=== PATIENT | male | born 1950 | race Caucasian/White ===

== ENCOUNTER 2019-04-22 10:07 | Day surgery (SDC) | payer OTHER ==
[~2019-04-22] VITALS: Ht 185.4 cm; Wt 123.8 kg
[~2019-04-22 10:07] MED LIST: ASPI81TA85 PO; CLAR10CA3 PO; MAGN200T PO; MOTR200T44 PO; MULTCAP PO; NS 1,000 ML IV ONE; OMEP20CA4 PO; ROSU5TAB5 PO; SAW1CAPS2 PO; VITA500T PO
[2019-04-22] MEDS ORDERED: PROPOFOL 200 MG/20 ML VIAL As Ordered ONE ×2 (10:37→11:34)
[2019-04-22] MEDS ORDERED: LIDOCAINE 2% INJ 100 MG/5 ML SDV (FOR ANES.) As Ordered ONE (10:37)
--- NOTE | 2019-04-22 11:13 | ROOR ---
Patient Name: Singh Dorsey Procedure Date: 04/22/2019 10:54 AM Date of : 1950 Age: 69 Room: [facility] Gender: Male Note Status: Finalized Procedure: Upper Endoscopy + Biopsies Indications: Heartburn, Exclusion of Ruiz's esophagus Providers: Christ Briceño MD Referring MD: Consuelo Snell Np Requesting Provider: Medicines: Monitored Anesthesia Care Complications: No immediate complications. Procedure: Pre-Anesthesia Assessment: - The heart rate, respiratory rate, oxygen saturations, blood pressure, adequacy of pulmonary ventilation, and response to care were monitored throughout the procedure. The Endoscope was introduced through the mouth, and advanced to the second part of duodenum. The upper GI endoscopy was accomplished without difficulty. The patient tolerated the procedure well. Findings: The Z-line was irregular and was found 40 cm from the incisors. Multiple biopsies were obtained with cold forceps for evaluation to rule out Ruiz's Esophagus randomly at the gastroesophageal junction. Mucosal changes including ringed esophagus were found in the entire esophagus. Biopsies were taken with a cold forceps for histology. Localized mildly erythematous mucosa without bleeding was found in the gastric antrum. Biopsies were taken with a cold forceps for Helicobacter pylori testing. The exam of the duodenum was otherwise normal. Impression: - Z-line irregular, 40 cm from the incisors. - Esophageal mucosal changes suggestive of eosinophilic esophagitis. Biopsied. - Erythematous mucosa in the antrum. Biopsied. - Multiple biopsies were obtained at the gastroesophageal junction. - The examination was otherwise normal. Recommendation: - Patient has a contact number available for emergencies. The signs and symptoms of potential delayed complications were discussed with the patient. Return to normal activities tomorrow. Written discharge instructions were provided to the patient. - High fiber diet. - Discharge patient to home. - Follow an antireflux regimen. - Continue present medications. - Await pathology results. - Telephone GI clinic for pathology results in 1 week. - Return to referring physician. - The findings and recommendations were discussed with the patient's family. Christ Briceño MD Christ Briceño MD 04/22/2019 11:12:29 AM Electronically signed by Christ Briceño MD Number of Addenda: 0 Note Initiated On: 04/22/2019 10:54 AM Estimated Blood Loss: Estimated blood loss: none.
--- NOTE | 2019-04-22 11:39 | ROOR ---
Patient Name: Singh Dorsey Procedure Date: 04/22/2019 10:55 AM Date of : 1950 Age: 69 Room: [facility] Gender: Male Note Status: Finalized Procedure: Total Colonoscopy to Cecum + Biopsy Polypectomy Indications: Colon cancer screening in patient at increased risk: Colorectal cancer in father Providers: Christ Briceño MD Referring MD: Consuelo Snell Np Requesting Provider: Medicines: Monitored Anesthesia Care Complications: No immediate complications. Procedure: Pre-Anesthesia Assessment: - The heart rate, respiratory rate, oxygen saturations, blood pressure, adequacy of pulmonary ventilation, and response to care were monitored throughout the procedure. The Colonoscope was introduced through the anus and advanced to the cecum, identified by appendiceal orifice and ileocecal valve. The colonoscopy was performed without difficulty. The patient tolerated the procedure well. The quality of the bowel preparation was excellent. Findings: The perianal and digital rectal examinations were normal. Non-bleeding internal hemorrhoids were found during retroflexion. The hemorrhoids were small and Grade I (internal hemorrhoids that do not prolapse). Multiple small and large-mouthed diverticula were found in the recto-sigmoid colon, sigmoid colon and descending colon. A small polyp was found in the ascending colon. The polyp was sessile. The polyp was removed with a jumbo cold forceps. Resection and retrieval were complete. A small polyp was found in the hepatic flexure. The polyp was sessile. The polyp was removed with a jumbo cold forceps. Resection and retrieval were complete. A small polyp was found at 60 cm proximal to the anus. The polyp was sessile. The polyp was removed with a jumbo cold forceps. Resection and retrieval were complete. A small polyp was found at 30 cm proximal to the anus. The polyp was sessile. The polyp was removed with a jumbo cold forceps. Resection and retrieval were complete. The exam was otherwise without abnormality on direct and retroflexion views. Impression: - Non-bleeding internal hemorrhoids. - Diverticulosis in the recto-sigmoid colon, in the sigmoid colon and in the descending colon. - One small polyp in the ascending colon, removed with a jumbo cold forceps. Resected and retrieved. - One small polyp at the hepatic flexure, removed with a jumbo cold forceps. Resected and retrieved. - One small polyp at 60 cm proximal to the anus, removed with a jumbo cold forceps. Resected and retrieved. - One small polyp at 30 cm proximal to the anus, removed with a jumbo cold forceps. Resected and retrieved. - The examination was otherwise normal on direct and retroflexion views. - The exam was otherwise normal to the cecum. Recommendation: - Patient has a contact number available for emergencies. The signs and symptoms of potential delayed complications were discussed with the patient. Return to normal activities tomorrow. Written discharge instructions were provided to the patient. - High fiber diet. - Discharge patient to home. - Continue present medications. - Await pathology results. - Telephone GI clinic for pathology results in 1 week. - Repeat colonoscopy in 5 years for surveillance based on pathology results. - Return to referring physician. - Check Portal Online for Path Results.([email or web address] - The findings and recommendations were discussed with the patient's family. Christ Briceño MD Christ Briceño MD 04/22/2019 11:39:21 AM Electronically signed by Christ Briceño MD Number of Addenda: 0 Note Initiated On: 04/22/2019 10:55 AM Estimated Blood Loss: Estimated blood loss: none.
[2019-04-22 12:04] VITALS: BP 143/85
== END 2019-04-22 12:05 | disposition home or self-care (01) ==
LOC: M OPP 10:07
PROVIDERS: ATTEND Internal Medicine Gastroenterology
DX: Z12.11 Encounter for screening for malignant neoplasm of colon (principal); Z80.0 Family history of malignant neoplasm of digestive organs; K64.0 First degree hemorrhoids; K57.30 Diverticulosis of large intestine without perforation or abscess without bleeding; D12.2 Benign neoplasm of ascending colon; D12.3 Benign neoplasm of transverse colon; D12.4 Benign neoplasm of descending colon; D12.5 Benign neoplasm of sigmoid colon; R12 Heartburn; K22.8 Other specified diseases of esophagus; K31.89 Other diseases of stomach and duodenum; E78.5 Hyperlipidemia, unspecified; K21.9 Gastro-esophageal reflux disease without esophagitis; M54.89 Other dorsalgia; R06.83 Snoring; Z79.82 Long term (current) use of aspirin; Z79.899 Other long term (current) drug therapy